=== PATIENT | female | born 1965 | race African-American/Black ===

== ENCOUNTER 2016-10-20 08:00 | Outpatient (CLI) | payer OTHER | END 2016-10-20 23:59 | disposition home or self-care (01) | LOC: LAB.R 08:00 | PROVIDERS: ATTEND Nurse Practitioner Family | DX: L02.216 Cutaneous abscess of umbilicus (principal) | CPT/HCPCS: 87070; 87205 ==

== ENCOUNTER 2016-12-18 11:29 | Outpatient (CLI) | payer OTHER ==
--- NOTE | 2016-12-18 16:36 | Mammography Report ---
DIGITAL DIAGNOSTIC BILATERAL MAMMOGRAM: 12/18/2016 CLINICAL INDICATION: Palpable abnormality left lower outer quadrant. COMPARISON: 10/01/2015, 10/24/2013, 03/23/2013, 07/06/2012, 06/28/2012, 07/09/2011, 05/15/2010, 04/10. TECHNIQUE: Bilateral CC and MLO views, left true lateral view. The patient states that the palpable abnormality in the left lower outer quadrant has resolved, so no marker could be placed. The breasts demonstrate heterogeneously dense fibroglandular parenchyma bilaterally. Punctate, typic ally benign calcifications are present. No suspicious masses, clustered microcalcifications, or ronaldo ons of architectural distortion are identified. Specifically, no mammographic abnormality is appreci ated in the left lower outer quadrant, in the region that the patient described originally feeling th e palpable abnormality. IMPRESSION: BENIGN FINDINGS. RECOMMENDATION: ROUTINE ANNUAL SCREENING UNLESS OTHERWISE CLINICALLY INDICATED. BIRADS CATEGORY: 2, BENIGN FINDINGS. STANDARD QUALIFYING STATEMENTS 1. This examination was reviewed with the aid of Computed-Aided Detection (CAD). 2. A negative or benign imaging report should not delay biopsy if clinically suspicious findings are present. Consider surgical consultation if warranted. More than 5% of cancers are not identified b y imaging. 3. Dense breasts may obscure an underlying neoplasm. JOB #: [id number] EXT JOB #:[id number]
== END 2016-12-18 11:30 | disposition home or self-care (01) ==
LOC: DI 11:29
PROVIDERS: ATTEND Nurse Practitioner Family
DX: N63 Unspecified lump in breast (principal); N64.4 Mastodynia
CPT/HCPCS: 77066

== ENCOUNTER 2017-11-19 11:12 | Outpatient (CLI) | payer OTHER ==
[2017-11-19 18:03] LABS: % IRON SATURATION 5 % (20-50); IRON 18 ug/dL (28-170); TOTAL IRON BINDING CAPACITY 398 ug/dL (250-450); TRANSFERRIN 284 mg/dL (192-382)
[2017-11-20 10:50] LABS: BASOPHILS # (AUTO) 0.1 10^3/uL (0.0-0.1); BASOPHILS % (AUTO) 1.9 %; EOSINOPHILS # (AUTO) 0.1 10^3/uL (0.0-0.7); HGB - HEMOGLOBIN 10.4 g/dL (12.0-16.0); LYMPHOCYTES # (AUTO) 1.2 10^3/uL (1.5-3.5); LYMPHOCYTES % (AUTO) 25.5 %; MEAN CORPUSCULAR HEMOGLOBIN 27.4 pg (27.0-31.0); MEAN CORPUSCULAR HGB CONC 30.9 g/dL (32.0-36.0); MEAN CORPUSCULAR VOLUME 88.8 fL (81.0-99.0); MEAN PLATELET VOLUME 8.5 fL (7.9-10.8); MONOCYTES # (AUTO) 0.4 10^3/uL (0.0-1.0); MONOCYTES % (AUTO) 9.1 %; NEUTROPHILS # (AUTO) 2.8 10^3/uL (1.5-6.6); NEUTROPHILS % (AUTO) 61.5 %; PLT - PLATELET COUNT 262 10^3/uL (130-450); RED CELL DISTRIBUTION WIDTH 18.8 % (12.0-15.0); WHITE BLOOD COUNT 4.6 x10^3/uL (4.8-10.8)
== END 2017-11-19 11:13 | disposition home or self-care (01) ==
LOC: LAB.F 11:12
PROVIDERS: ATTEND Nurse Practitioner Family
DX: R53.83 Other fatigue (principal)
CPT/HCPCS: 36415; 82728; 83540; 84466; 85025

== ENCOUNTER 2018-01-14 11:23 | Outpatient (CLI) | payer OTHER ==
--- NOTE | 2018-01-14 16:25 | Ultrasound Report ---
Reason: UTERINE LEIOMYOMA,MENORRHAGIA/MENOMETRORRHAGIA,IRO Procedure Date: 01/14/2018 Accession Number: [id number] / [id number] Procedure: US - Pelvic w/Transvaginal CPT Code: FULL RESULT: EXAM: PELVIC ULTRASOUND EXAM DATE: 01/14/2018 12:52 PM. CLINICAL HISTORY: UTERINE LEIOMYOMA,MENORRHAGIA/MENOMETRORRHAGIA, LMP 01/06/2018 COMPARISON: CT 06/18/2012. TECHNIQUE: Realtime transabdominal pelvic scan performed to identify the uterus and adnexa and as an overview of other pelvic structures, followed by transvaginal scan to provide greater detail of the uterus and adnexa, with static image documentation. FINDINGS: Uterus: 15 x 9.6 x 7.6 cm, volume 572 cc. Anteverted position. Enlarged size and heterogeneity echotexture. Masses: Multiple fibroids with the largest measuring 4.2 x 4.2 x 4.5 cm right lateral intramural, 3.2 x 3.3 x 2.9 cm posterior intramural, and 2.7 x 2.7 x 2.4 cm left lateral with calcifications. Endometrium: 6 mm. Normal. Cervix: Unremarkable. Right Ovary: 2.5 x 1.5 x 0.8 cm, volume 1.5 cc. Normal echotexture and blood flow. Left Ovary: Not seen. No adnexal masses. Free Fluid: None. Other: None. IMPRESSION: Enlarged myomatous uterus. Otherwise negative pelvic ultrasound. RADIA
== END 2018-01-14 11:24 | disposition home or self-care (01) ==
LOC: DI 11:23
PROVIDERS: ATTEND Nurse Practitioner Family
DX: D25.1 Intramural leiomyoma of uterus (principal); D25.9 Leiomyoma of uterus, unspecified
CPT/HCPCS: 76830; 76856

== ENCOUNTER 2019-07-14 15:20 | Outpatient (CLI) | payer OTHER ==
--- NOTE | 2019-07-15 08:48 | Mammography Report ---
Reason: ROUTINE MAMMO Procedure Date: 07/14/2019 Accession Number: [id number] / [id number] Procedure: MGS - Screening Mammo Dig Bilat CPT Code: Final Report FULL RESULT: EXAM: Screening Mammo Dig Bilat DATE: 07/14/2019 3:42 PM CLINICAL HISTORY: Screening encounter. History of late childbearing. TECHNIQUE: (B) - Bilateral CC and MLO views were obtained. COMPARISON: 12/18/2016 through 04/24/2010. PARENCHYMAL PATTERN: (D) - The breast(s) demonstrate(s) heterogeneously dense fibroglandular parenchyma. FINDINGS: There are no suspicious masses, calcifications, or areas of distortion. IMPRESSION: Negative examination. BI-RADS category 1. RECOMMENDATION: (ANNUAL) - Recommend routine annual screening mammography. BI-RADS CATEGORY: (1) - Negative. STANDARD QUALIFYING STATEMENTS: 1. This examination was reviewed with the aid of Computer-Aided Detection (CAD). 2. A negative or benign imaging report should not preclude biopsy if clinically suspicious findings are present. 3. Dense breasts may obscure an underlying neoplasm. 4. This examination was reviewed without the aid of 3D breast imaging (tomosynthesis).
== END 2019-07-14 23:59 | disposition home or self-care (01) ==
LOC: DI.S 15:20
PROVIDERS: ATTEND Registered Nurse
DX: Z12.31 Encounter for screening mammogram for malignant neoplasm of breast (principal)
CPT/HCPCS: 77067

== ENCOUNTER 2019-09-12 12:46 | Emergency (ER) | payer OTHER ==
[2019-09-12] MEDS ORDERED: CHERRY SYRUP 10 ML UDC PO ONE (15:14)
[2019-09-12] MEDS ORDERED: methocarbamoL 500 MG TABLET PO STA (15:14)
[2019-09-12] MEDS ORDERED: oxyCODONE 5 MG TABLET PO STA (15:14)
[2019-09-12] MEDS ORDERED: DEXAMETHASONE 10 MG/ML VIAL PO STA (15:14)
--- NOTE | 2019-09-12 15:43 | ED Physician Documentation ---
PD HPI BACK PAIN - Stated complaint Stated Complaint: BACK PX - Chief complaint Chief Complaint: Back Pain - History obtained from History obtained from: Patient - History of Present Illness Timing - onset: How many weeks ago (1) Timing - duration: Weeks (1) Timing - details: Gradual onset, Waxing and waning Location: Lower, Left Quality: Pain Associated symptoms: No: Fever, Weakness, Numbness, Incontinent of urine Worsened by: Movement, Twisting. No: Palpation Contributing factors: No: Lifting, Twisting, Trauma Similar symptoms before: Diagnosis (HNP with intermittent low back pain/sciatica. Has not bothered her for few years. 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 : None HEENT: None Psych: None Musculoskeletal: None, Other Derm: None Other Past Medical History: Sciatica left leg - Past Surgical History Past Surgical History: Yes Ortho: Other /EXPLOSIVES OPERATOR: section - Present Medications Home Medications: Ambulatory Orders Medication Instructions Recorded Confirmed Hydrocodone/Acetaminophen [[place] 1 each PO Q6H PRN #20 tablet 09/12/19 5-325 Tablet] Tizanidine HCl 4 mg PO TID PRN #25 capsule 09/12/19 dexAMETHasone [Decadron] 4 mg PO DAILY #5 tablet 09/12/19 - Allergies Allergies/Adverse Reactions: Allergies Allergy/AdvReac Type Severity Reaction Status Date / Time No Known Drug Allergies Allergy Verified 09/12/19 12:52 - Social History Does the pt smoke?: No Smoking Status: Never smoker Does the pt drink ETOH?: No Does the pt have substance abuse?: No - Immunizations Immunizations are current?: Yes - POLST Patient has POLST: No PD ED PE NORMAL - Vitals Vital signs reviewed: Yes - General General: Alert and oriented X 3, Well developed/nourished, Other (guarded ROM of the low back. Tender more at the SI joint area and not spine per se. ) - Abdomen Abdomen: Soft, Non tender - Back Back: No CVA TTP, No spinal TTP (mainly left upper SI area. ) - Derm Derm: Normal color, Warm and dry - Extremities Extremities: Normal ROM s pain, No edema, No calf tenderness / cord - Neuro Neuro: Alert and oriented X 3, No motor deficit, No sensory deficit, Other (normal knee reflexes) Results - Vitals Vitals: Vital Signs - 24 hr 09/12/19 15:57 Temperature 36.9 C Heart Rate 66 Respiratory 16 Rate Blood Pressure 172/84 H O2 Saturation 100 Oxygen O2 Source Room air PD MEDICAL DECISION MAKING - ED course Complexity details: reviewed old records (No excess meds per [employer]. ), considered differential (no red flags to suggest need for testing/imaging. ), d/w patient Departure - Departure Disposition: 01 Home, Self Care Clinical Impression: Low back pain Qualifiers: Chronicity: acute Back pain laterality: left Sciatica presence: with sciatica Sciatica laterality: sciatica of left side Qualified Code(s): M54.42 - Lumbago with sciatica, left side Condition: Stable Record reviewed to determine appropriate education?: Yes Instructions: ED Sciatica Follow-Up: Anastasiia Vo ARNP [Primary Care Provider] - Prescriptions: dexAMETHasone [Decadron] 4 mg PO DAILY #5 tablet Hydrocodone/Acetaminophen [[place] 5-325 Tablet] 1 each PO Q6H PRN #20 tablet PRN Reason: Pain Tizanidine HCl 4 mg PO TID PRN #25 capsule PRN Reason: Spasms Comments: Continue some Advil 2 tablets 2-3 times a day with food for the next several days to a week. Add Decadron steroid anti-inflammatory daily for 5 more days as well. Heat or ice whichever feels better for the low back and gentle stretching and range of motion. Add tizanidine muscle relaxant for stiffness for the back. Add Tylenol 3 or 4 times a day or for pain or hydrocodone if needed for worse pain. Follow-up with your primary care in about a week, call for an appointment time. They can see how much improvement you have had during that time and whether to go on to more formal therapy or to get imaging. Meanwhile chiropractic or massage versus good treatment options as well. Discharge Date/Time: 09/12/19 15:58
[2019-09-12 15:58] VITALS: BP 172/84
== END 2019-09-12 15:58 | disposition home or self-care (01) ==
LOC: ED 12:46
DX: M54.42 Lumbago with sciatica, left side (principal)
CPT/HCPCS: 99283; 99284; A9270

== ENCOUNTER 2020-02-29 15:40 | Outpatient (CLI) | payer OTHER | END 2020-02-29 23:59 | disposition home or self-care (01) | LOC: LAB.R 15:40 | PROVIDERS: ATTEND Physician Assistant Medical | DX: N39.0 Urinary tract infection, site not specified (principal) | CPT/HCPCS: 87086 ==

== ENCOUNTER 2020-06-21 07:02 | Day surgery (SDC) | payer OTHER ==
[2020-06-21] MEDS ORDERED: LACTATED RINGERS 1,000 ML IV ONE ×2 (07:51→09:13)
[2020-06-21] MEDS ORDERED: MIDAZOLAM 2 MG/2 ML VIAL ONE ×2 (08:32→08:34)
[2020-06-21] MEDS ORDERED: fentaNYL 250 MCG/5 ML VIAL ONE (08:33)
[2020-06-21 09:40] VITALS: BP 102/75
== END 2020-06-21 07:03 | disposition home or self-care (01) ==
LOC: SDS 07:02
PROVIDERS: ATTEND Surgery
DX: Z12.11 Encounter for screening for malignant neoplasm of colon (principal); K63.89 Other specified diseases of intestine
CPT/HCPCS: 45378; J3010; J7120

== ENCOUNTER 2023-04-01 10:48 | Outpatient (CLI) | payer BC ==
--- NOTE | 2023-04-03 09:34 | Mammography Report ---
BILATERAL DIGITAL SCREENING MAMMOGRAM 3D/2D: 04/01/2023 CLINICAL: Routine screening. Comparison is made to exams dated: 07/14/2019 mammogram, 12/18/2016 mammogram, and 10/01/2015 mammogram - [facility]. Both breasts are heterogeneously dense, which may obscure small masses (category c / 51-75% glandular tissue). No significant masses, calcifications, or other findings are seen in either breast. There has been no significant interval change. IMPRESSION: NEGATIVE There is no mammographic evidence of malignancy. A 1 year screening mammogram is recommended. Based on the Tyrer Cuzick model (a risk assessment model) the patients lifetime risk is 16.4% and he r 10 year risk is 5.4%. According to the ACR, ACS, and NCCN guidelines, an annual breast MRI exam carlos manuel ng with mammogram is recommended if the patients lifetime risk is 20% or greater. This exam was interpreted at Station ID: [id number]. NOTE: For mammograms, a report in lay terms will be sent to the patient. Approximately 15% of breast malignancies will not be visualized mammographically. In the management of a palpable breast mass, a negative mammogram must not discourage biopsy of a clinically suspicious lesion. Electronically Signed By: Dipesh gomez/allen:04/01/2023 16:15:06 letter sent: No_Letter ACR BI-RADS Category 1: Negative 3341F PARENCHYMAL PATTERN: (D) - The breast(s) demonstrate(s) heterogeneously dense fibroglandular srini tony. BI-RADS CATEGORY: (1) - 1 Mammogram [id number] 1 year screening LATERALITY: (B)
== END 2023-04-01 10:49 | disposition home or self-care (01) ==
LOC: DI.S 10:48
DX: Z12.31 Encounter for screening mammogram for malignant neoplasm of breast (principal); R92.333 Mammographic heterogeneous density, bilateral breasts

== ENCOUNTER 2023-08-01 12:39 | Outpatient (CLI) | payer BC ==
--- NOTE | 2023-08-02 12:27 | Ultrasound Report ---
PROCEDURE: Pelvic w/Transvaginal INDICATIONS: PELVIC PAIN TECHNIQUE: Real-time scanning was performed of the pelvic organs, with image documentation. Additional endovagi nal scanning was necessary due to incomplete visualization of the adnexal and endometrial structures by transabdominal scanning. COMPARISON: Pelvic ultrasound dated 01/14/2018 FINDINGS: Uterus: Uterus is anteverted and normal in size at 9.5 x 7.1 x 6.6 cm. The myometrium is heterogene ous. The endometrium measures 8 mm in combined thickness. There are multiple uterine fibroids inclu ding the followin. Midline posterior subserosal, 2.3 x 3.5 x 3.4 cm. Previously 3.3 x 2.9 x 3.3 cm on the study dated 01/14/2018. 2. Midline submucosal: 3.0 x 3.4 x 3.1. Previously 4.0 x 4.4 x 3.7 cm. 3. Right anterior intramural, 3.9 x 3.6 x 3.7 cm. Previously 4.2 x 4.5 x 4.2 cm. 4. Left anterior intramural 2.6 x 2.2 x 2.4 cm. Previously 2.4 x 2.7 x 2.7 cm. Ovaries: The right ovary measures 2.0 x 1.8 x 1.6 cm, with a calculated ovarian volume of 3.1 cc. T he left ovary measures 2.0 x 1.0 x 1.2 cm, with a calculated ovarian volume of 1.2 cc. The ovaries h ave a normal sonographic appearance. Less than 12 follicles can be seen in each ovary. No adnexal m asses are seen. No cystic lesions measuring greater than 3 cm. Other: No pathologic free abdominal or pelvic fluid. IMPRESSION: 1. Fibroid uterus. Overall, the documented fibroids have slightly decreased in size when compared wit h the study from 2018. Reviewed by: Ashley Bower MD on 08/02/2023 12:25 PM PDT Approved by: Ashley Bower MD on 08/02/2023 12:25 PM PDT Station ID: [id number]
== END 2023-08-01 12:40 | disposition home or self-care (01) ==
LOC: DI 12:39
PROVIDERS: ATTEND Registered Nurse
DX: D25.2 Subserosal leiomyoma of uterus (principal); D25.0 Submucous leiomyoma of uterus; D25.1 Intramural leiomyoma of uterus